=== PATIENT | male | born 1965 | race Caucasian/White ===

== ENCOUNTER → 2021-05-19 | Outpatient (CLI) | payer OTHER ==
--- NOTE | 2021-05-19 07:59 | PFTRPT ---
Height: 70.00 Inches Weight: 198.00 Lbs BSA: 2.08 Diagnosis: SOB DATE: 05/19/2021 ORDERED BY: Eleazar Martinez D.O. Pre and post bronchodilator studies have excellent technical quality. Forced vital capacity is normal. FEV1 is in proportion. Obstructive index is therefore normal. Expiratory limit of the flow-volume loop is normal. No significant bronchodilator response is identified. Total lung capacity was not able to be obtained. Diffusing capacity is normal and remains normal corrected for alveolar volume. No hemoglobin available for correction. Airway resistance and conductance are normal. IMPRESSION: Essentially normal study. MTDD
== END ==
LOC: M CARPUL 07:31
PROVIDERS: ATTEND Emergency Medicine
DX: R06.02 Shortness of breath (principal)